=== PATIENT | male | born 1995 | race Caucasian/White ===

== ENCOUNTER 2017-01-19 00:42 | Inpatient (IN) | payer BC, OTHER ==
[~2017-01-19] VITALS: Ht 188 cm; Wt 95.0 kg
[2017-01-19 01:35] LABS: URINE APPEARANCE CLEAR (CLEAR); URINE BILIRUBIN NEG (NEG); URINE COLOR YELLOW; URINE NITRITE NEG (NEG); URINE SPECIFIC GRAVITY 1.014 (1.000-1.030); UROBILINOGEN NEG (NEG); ZZUR CULT IF INDIC CLEAN CATCH YES
--- NOTE | 2017-01-19 01:40 | EMERGENCY ROOM VISIT NOTE ---
History Report prepared by Yuri: Ike Sargent Under the Supervision of: Dr. Per Radford M.D. First contact with patient: 01:10 Chief Complaint: MENTAL HEALTH EVALUATION Stated Complaint: MHMR History of Present Illness The patient is a 21 year old male who presents to the Emergency Room for a mental health. The patient was drinking alcohol this evening with his friends. He then tried to get in contact with his girlfriend because they were fighting and she would not talk to him. He sent text messages to his girlfriend's friend that were concerning for suicidal ideation. The police were called, and they brought him here. The patient states the only text that he can think of that could suggest this is "I'm done." He does have a history of an intentional drug overdose 1 month ago. He denies any thoughts of hurting himself or others at this time. He has a history of anxiety and depression and was treated with [place] in the past. He was taken off of it due to his psychiatrist's inability to treat him anymore. He denies any other drug use. He denies any homicidal ideation. Source of History: patient Onset: Tonight Position: other (Global) Symptom Intensity: moderate Quality: other (Mental Health Evaluation) Timing: constant Note: Denies any thoughts of suicide or homicide. Review of Systems See HPI for pertinent positives & negatives. A total of 10 systems reviewed and were otherwise negative. Past Medical & Surgical Medical Problems: (1) Anxiety (2) Depression Family History Patient reports no known family medical history. Social History Smoking Status: Never Smoker Smokeless Tobacco Use: No Alcohol Use: occasionally Drug Use: none Marital Status: single Occupation Status: [employer] student Current/Historical Medications No Active Prescriptions or Reported Meds Allergies Coded Allergies: No Known Allergies (Unverified , 01/19/17) Physical Exam Vital Signs Date Time Temp Pulse Resp B/P (MAP) Pulse Ox O2 Delivery O2 Flow Rate FiO2 01/19/17 03:04 85 18 142/69 95 Room Air 01/19/17 00:47 36.7 118 19 142/85 95 Room Air Physical Exam GENERAL: Patient is minimally intoxicated. Smells of alcohol. Hesitant in answering questions. HEENT: No acute trauma, normocephalic atraumatic, mucous membranes moist, no nasal congestion, no scleral icterus. NECK: No stridor, no adenopathy, no meningismus, trachea is midline. LUNGS: No dyspnea. Clear to auscultation and equal bilaterally. No wheeze, no rhonchi. HEART: Regular rate and rhythm. No murmurs, rubs, gallops appreciated. ABDOMEN: Soft, nontender, bowel sounds positive, no masses appreciated, no peritonitis. BACK: No midline tenderness, no CVA tenderness EXTREMITIES: Normal motion all extremities, no cyanosis, no edema. NEUROLOGIC: Alert and oriented, no acute motor or sensory deficits, no focal weakness, cranial nerves grossly intact. SKIN: No rash, no jaundice, no diaphoresis. PSYCH: Denies suicidal ideation, depression, and homicidal ideation. Denies saying the things that are documented in the 302 petition. Medical Decision & Procedures Laboratory Results 01/19/17 01:27 Red Blood Count 4.75, Mean Corpuscular Volume 88.0, Mean Corpuscular Hemoglobin 32.2, Mean Corpuscular Hemoglobin Concent 36.6, Mean Platelet Volume 9.4, Neutrophils (%) (Auto) 61.3, Lymphocytes (%) (Auto) 31.3, Monocytes (%) (Auto) 5.7, Eosinophils (%) (Auto) 1.1, Basophils (%) (Auto) 0.4, Neutrophils # (Auto) 2.78, Lymphocytes # (Auto) 1.42, Monocytes # (Auto) 0.26, Eosinophils # (Auto) 0.05, Basophils # (Auto) 0.02 01/19/17 01:27 Test 01/19/17 00:58 01/19/17 01:27 Urine Color YELLOW Urine Appearance CLEAR (CLEAR) Urine pH 5.0 (4.5-7.5) Urine Specific [place] 1.014 (1.000-1.030) Urine Protein NEG (NEG) Urine Glucose (UA) NEG (NEG) Urine Ketones NEG (NEG) Urine Occult Blood NEG (NEG) Urine Nitrite NEG (NEG) Urine Bilirubin NEG (NEG) Urine Urobilinogen NEG (NEG) Urine Leukocyte Esterase SMALL (NEG) Urine WBC (Auto) /hpf (0-5) Urine RBC (Auto) /hpf (0-4) Urine Hyaline Casts (Auto) /lpf (0-5) Urine Epithelial Cells (Auto) /lpf (0-5) Urine Bacteria (Auto) (NEG) Urine RBC 0-4 /hpf (0-4) Urine WBC 10-30 /hpf (0-5) Urine Epithelial Cells 0-5 /lpf (0-5) Urine Bacteria NEG (NEG) Urine Opiates Screen NEG (NEG) Urine Methadone, Qualitative NEG (NEG) Urine Barbiturates NEG (NEG) Urine Phencyclidine (PCP) Level NEG (NEG) Ur Amphetamine/Methamphetamine NEG (NEG) MDMA (Ecstasy) Screen NEG (NEG) Urine Benzodiazepines Screen NEG (NEG) Urine Cocaine Metabolite NEG (NEG) Urine Marijuana (THC) NEG (NEG) White Blood Count 4.54 K/uL (4.8-10.8) Red Blood Count 4.75 M/uL (4.7-6.1) Hemoglobin 15.3 g/dL (14.0-18.0) Hematocrit 41.8 % (42-52) Mean Corpuscular Volume 88.0 fL (80-100) Mean Corpuscular Hemoglobin 32.2 pg (25-34) Mean Corpuscular Hemoglobin Concent 36.6 g/dl (32-36) Platelet Count 206 K/uL (130-400) Mean Platelet Volume 9.4 fL (7.4-10.4) Neutrophils (%) (Auto) 61.3 % Lymphocytes (%) (Auto) 31.3 % Monocytes (%) (Auto) 5.7 % Eosinophils (%) (Auto) 1.1 % Basophils (%) (Auto) 0.4 % Neutrophils # (Auto) 2.78 K/uL (1.4-6.5) Lymphocytes # (Auto) 1.42 K/uL (1.2-3.4) Monocytes # (Auto) 0.26 K/uL (0.11-0.59) Eosinophils # (Auto) 0.05 K/uL (0-0.5) Basophils # (Auto) 0.02 K/uL (0-0.2) RDW Standard Deviation 40.0 fL (36.4-46.3) RDW Coefficient of Variation 12.5 % (11.5-14.5) Immature Granulocyte % (Auto) 0.2 % Immature Granulocyte # (Auto) 0.01 K/uL (0.00-0.02) Anion Gap 10.0 mmol/L (3-11) Est Creatinine Clear Calc Drug Dose 128.1 ml/min Estimated GFR () 111.4 Estimated GFR (Non- 96.1 BUN/Creatinine Ratio 17.9 (10-20) Calcium Level 8.4 mg/dl (8.5-10.1) Total Bilirubin 0.5 mg/dl (0.2-1) Aspartate Amino Transf (AST/SGOT) 17 U/L (15-37) Alanine Aminotransferase (ALT/SGPT) 25 U/L (12-78) Alkaline Phosphatase 89 U/L (45-117) Total Protein 7.1 gm/dl (6.4-8.2) Albumin 4.2 gm/dl (3.4-5.0) Globulin 2.9 gm/dl (2.5-4.0) Albumin/Globulin Ratio 1.4 (0.9-2) Thyroid Stimulating Hormone (TSH) 1.850 uIu/ml (0.300-4.500) Salicylates Level < 1.7 mg/dl (2.8-20) Acetaminophen Level < 2 ug/ml (10-30) [place] Level < 0.2 mMOL/L (0.6-1.2) Ethyl Alcohol mg/dL 87.0 mg/dl (0-3) Laboratory results as reviewed by me. ED Course 0110: The patient was evaluated in room A6. A complete history and physical exam was performed. 0326: The patient willingly signed the 203 form and will be transferred to [address] [place] [address] for further management. Medical Decision Differential: Mood Disorder, Overdose, Infectious, Electrolyte Abnormality, Cardiac, Hepatic, Endocrine, Toxicologic, Neurologic, amongst other pathologies entertained. 21 yr old male arrives via police after making suicidal statements to friends. This was confirmed by friend and through 302 petition. Medically clear. He is somewhat evasive about this but with his recent suicide attempt, clear statements in 302, I feel that admission to psych necessary. [address] [place] [address] down to discuss with patient and he is voluntarily accepting admission here. Medication Reconcilliation Current Medication List: was personally reviewed by me Blood Pressure Screening Patient's blood pressure: Elevated blood pressure Blood pressure disposition: Elevated BP felt to be situational Impression Primary Impression: Suicidal ideation Additional Impression: Depression Scribe Attestation The scribe's documentation has been prepared under my direction and personally reviewed by me in its entirety. I confirm that the note above accurately reflects all work, treatment, procedures, and medical decision making performed by me. Departure Information Dispostion Mental Health Acute Care Prescriptions No Active Prescriptions or Reported Meds Referrals No Doctor, Assigned (PCP) Patient Instructions My [facility] Problem Qualifiers
[2017-01-19 01:44] LABS: BASO % 0.4 %; BASO ABS # 0.02 K/uL (0-0.2); COMPLETE YES; EOS % 1.1 %; HEMATOCRIT 41.8 % (42-52); IG% 0.2 %; LYMPH % 31.3 %; LYMPH ABS # 1.42 K/uL (1.2-3.4); MEAN CORPUSCULAR HEMOGLOBIN 32.2 pg (25-34); MEAN CORPUSCULAR HGB CONC 36.6 g/dl (32-36); MEAN PLATELET VOLUME 9.4 fL (7.4-10.4); MONO % 5.7 %; NEUT % 61.3 %; PLATELET COUNT 206 K/uL (130-400); RED BLOOD COUNT 4.75 M/uL (4.7-6.1); WHITE BLOOD COUNT 4.54 K/uL (4.8-10.8)
[2017-01-19 01:53] LABS: BENZODIAZEPINE, URINE NEG (NEG); COCAINE,URINE NEG (NEG); MANUAL MICROSCOPIC REQUIRED? YES; PHENCYCLIDINE, URINE NEG (NEG); REVIEW REQ? NO
[2017-01-19 01:55] LABS: URINE BACTERIA NEG (NEG); URINE RBC 0-4 /hpf (0-4)
[2017-01-19 02:01] LABS: BUN/CREATININE RATIO 17.9 (10-20); CALCIUM 8.4 mg/dl (8.5-10.1); CREATININE 1.1 mg/dl (0.60-1.40); POTASSIUM 3.7 mmol/L (3.5-5.1)
[2017-01-19 02:12] LABS: ALB/GLOB RATIO 1.4 (0.9-2); THYROID STIMULATING HORMONE 1.85 uIu/ml (0.300-4.500)
[2017-01-19 02:17] LABS: ACETAMINOPHEN < 2 ug/ml (10-30); LITHIUM < 0.2 mMOL/L (0.6-1.2)
[2017-01-19 03:04] VITALS: O2SAT 95
[2017-01-19] MEDS ORDERED: NURSING VERBAL MED ORDER ONE (03:15)
[2017-01-19 03:30] VITALS: BP 142/69; PULSE 85; TEMP 36.7; BMI 26.4; BMI 26.9
[2017-01-19 03:39] VITALS: BP 142/69; PULSE 85; TEMP 36.7; Ht 188 cm; Wt 95.0 kg
[2017-01-19] MEDS ORDERED: hydrOXYzine HCL 25 MG TAB PO PRN (04:15)
[2017-01-19] MEDS ORDERED: MAGNESIUM HYDROXIDE SUSP 30 ML UDC PO PRN (04:15)
[2017-01-19] MEDS ORDERED: BISMUTH SUBSALICYLATE PER ML OMNICELL CHARGE PO PRN (04:15)
[2017-01-19] MEDS ORDERED: SODIUM CHLORIDE 0.65% NA SOLN 45 ML (OCEAN) PRN (04:15)
[2017-01-19] MEDS ORDERED: ALUMINUM/MAGNESIUM SUSP 30 ML UDC PO PRN (04:15)
[2017-01-19] MEDS ORDERED: ACETAMINOPHEN 325 MG TAB PO PRN (04:15)
[2017-01-19 06:52] VITALS: BP_SYST 109; BP_SYST 118; BP_DIAS 64; BP_DIAS 71; PULSE 80; PULSE 85; TEMP 36.8
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
[2017-01-19 14:02] VITALS: BP 105/67; PULSE 54
[2017-01-19] MEDS: hydrOXYzine HCL 25 MG TAB PO PRN ×2 (21:21→22:36)
[2017-01-19 21:46] VITALS: BP 122/80; PULSE 48
[2017-01-20 06:38] VITALS: BP_SYST 115; BP_SYST 122; BP_DIAS 67; BP_DIAS 71; PULSE 66; PULSE 79; TEMP 36.5
--- NOTE | 2017-01-20 10:09 | Psychiatric Progress Notes ---
Progress Note Date of Service Jan 20, 2017. 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 Today he contends that this was all misconstrued. He was not suicidal in any way. He does not want to take medications although says he would like to see a therapist while here at [facility]. He is agreeable to allowing us to gain some supplemental information from the friends he was with an from the girlfriend's friend who received a text that were worrisome. He is being cooperative with treatment but because the fall started yesterday, he would like to be discharged as soon as possible not wanting to miss any more school then necessary. At this point, the patient requires inpatient treatment until we are able to collaborate the patient's story and mediate any existing risk factors. Chief Complaint "I'm fine. ". Subjective Patient was seen & assessed interval progress reviewed with Treatment Team. The patient says that he had a hard time falling asleep last night and so took a prn vistaril. He has talked with his girlfriend by phone, and she has told him that she wants him to be well. A meeting is scheduled with her at noon today. We explore reasons that his previous provider might have prescribed mood stabilizers. He denies any discrete episodes of euphoric mood, sleeplessness or pleasure seeking behaviors. He again says that he has emotional spikes that are usually reactive to something having to do with his mother or his girlfriend. He often looks back at the episode and asks himself "Why can't I just let things go?" realizing that he may have over-reacted. He again says that he has not been depressed for more than a day or two over the last several weeks. He denies any persistent pattern of depressed mood or anxiety. He continues to deny SI. He has submitted his 72 hr notice to withdraw from treatment and is hoping to be able to attend classes on Wednesday AM. Parents are also here and will come in for a meeting on . Review of Systems Constitutional: No fever, No chills, No sweats, No weight loss, No weakness, No fatigue, No problem reported ENT: No hearing loss, No unusual epistaxis, No nasal symptoms, No sore throat, No tinnitus, No dental problems, No trouble swallowing, No problem reported Respiratory: No cough, No sputum, No wheezing, No shortness of breath, No dyspnea on exertion, No dyspnea at rest, No hemoptysis, No problem reported Cardiovascular: No chest pain, No orthopnea, No PND, No edema, No claudication , No palpitations, No problem reported Abdomen: No pain, No nausea, No vomiting, No diarrhea, No constipation, No GI bleeding, No problem reported Musculoskeletal: No joint pain, No muscle pain, No swelling, No calf pain, No problem reported Neurologic: No memory loss, No paralysis, No weakness, No numbness/tingling, No vertigo, No balance problems, No problem reported Psychiatric: No depression symptoms, No anhedonism, No anxiety, No insomnia, No substance abuse, No problem reported Integumentary: No rash, No itch, No new/changing skin lesions, No color change , No bleeding, No problem reported Sleep Information Total Hours of Sleep: 6.25 Meal Information Percent of Breakfast Consumed: 0 Percent of Lunch Consumed: 0 Percent of Dinner Consumed: 75 Mental Status Exam During interview pt is: alert and oriented, cooperative Appearance: appropriately groomed Eye contact is: good Motor behavior is: steady gait & station, no abnormal motor movements Speech: normal in rate, rhythm & volume Affect: blunted Mood is: other ("hopeful") Thought process: goal directed Thought content: reality based without delusions Suicidal thought are: denied Homicidal thoughts are: denied Hallucinations: denies auditory, denies visual Cognition: memory grossly intact, attention grossly intact, language grossly intact Intelligence estimated to be: average Insight: fair Judgement: fair Impression The patient is adjusting to the unit, and has submitted a 72 hr notice to withdraw from treatment that will on 01/22 at 1000. We are continuing to gather supplemental information, and will have a meeting with his girlfriend today at noon. Staff has been told that she would like to end the relationship based on the fact that he is extremely controlling. Parents will come for a meeting tomorrow. I cannot elicit a history of depressed mood recently, nor anxiety that would respond to ADM's, and I cannot find evidence of bipolarity in his history. WE will ask him to sign an RD for his old psychiatrist to better understand why he prescribed mood stabilizers. At this time, we will order no meds. Plan (1) unspecified depression 01/19 - Obtain collateral information from the friends he was drinking with, and or the girl to whom he texted last night -Every 15 minute checks for safety -Encourage participation in group and individual counseling -The patient is agreeable to outpatient therapy -He is declining medications at this time 01/20 - Meeting with GF today at noon, and parents tomorrow at 2200 (2) History of seizures 01/19 -No seizures since February 2016 and is not on antiseizure medicines Has been reviewed with Dr. Chitra Tom Discharge / Aftercare Planning Primary Care Physician: Name: [facility] Therapist: Name: Chandu Savage Visit Code E&M Code: 08517 Inventory Assets Strengths: Doing well academically in school, good relationship with family Needs: To abstain from alcohol Risk Factors Assessment Male: Yes : Yes /single/: Yes Higher / Fall in social status: No Health problems: No Mental Health Diagnoses: Yes Substance use disorders: Yes Previous attempt: Yes Previous psychiatric stay: Yes Hopelessness: No Smoker: No Protective Factors Assessment Confucianism beliefs: Yes : No Responsible for young children: No Employed: No Stable relationships: Yes Supportive family: Yes Data Vital Signs Last 24 Hrs: Date Time Temp Pulse Resp B/P (MAP) Pulse Ox O2 Delivery O2 Flow Rate FiO2 01/20/17 06:38 36.5 66 16 115/67 79 122/71 01/19/17 21:46 48 18 122/80 01/19/17 14:02 54 14 105/67 Meds Administered Last 24 Hrs: Meds Administered (Past 24Hrs) Medications (Trade) Dose Ordered Sig/Cara Route Start Time Stop Time Status Last Admin Dose Admin Hydroxyzine HCl (Vistaril Tab) 50 mg HSZ PRN PO 01/19/17 04:15 02/18/17 04:14 01/19/17 22:36 50 MG Lab Results Last 24 Hrs: 01/19/17 01:27 Red Blood Count 4.75, Mean Corpuscular Volume 88.0, Mean Corpuscular Hemoglobin 32.2, Mean Corpuscular Hemoglobin Concent 36.6, Mean Platelet Volume 9.4, Neutrophils (%) (Auto) 61.3, Lymphocytes (%) (Auto) 31.3, Monocytes (%) (Auto) 5.7, Eosinophils (%) (Auto) 1.1, Basophils (%) (Auto) 0.4, Neutrophils # (Auto) 2.78, Lymphocytes # (Auto) 1.42, Monocytes # (Auto) 0.26, Eosinophils # (Auto) 0.05, Basophils # (Auto) 0.02 01/19/17 01:27 Test 01/19/17 00:58 01/19/17 01:27 Urine Color YELLOW Urine Appearance CLEAR (CLEAR) Urine pH 5.0 (4.5-7.5) Urine Specific Carson 1.014 (1.000-1.030) Urine Protein NEG (NEG) Urine Glucose (UA) NEG (NEG) Urine Ketones NEG (NEG) Urine Occult Blood NEG (NEG) Urine Nitrite NEG (NEG) Urine Bilirubin NEG (NEG) Urine Urobilinogen NEG (NEG) Urine Leukocyte Esterase SMALL (NEG) Urine WBC (Auto) /hpf (0-5) Urine RBC (Auto) /hpf (0-4) Urine Hyaline Casts (Auto) /lpf (0-5) Urine Epithelial Cells (Auto) /lpf (0-5) Urine Bacteria (Auto) (NEG) Urine RBC 0-4 /hpf (0-4) Urine WBC 10-30 /hpf (0-5) Urine Epithelial Cells 0-5 /lpf (0-5) Urine Bacteria NEG (NEG) Urine Opiates Screen NEG (NEG) Urine Methadone, Qualitative NEG (NEG) Urine Barbiturates NEG (NEG) Urine Phencyclidine (PCP) Level NEG (NEG) Ur Amphetamine/Methamphetamine NEG (NEG) MDMA (Ecstasy) Screen NEG (NEG) Urine Benzodiazepines Screen NEG (NEG) Urine Cocaine Metabolite NEG (NEG) Urine Marijuana (THC) NEG (NEG) White Blood Count 4.54 K/uL (4.8-10.8) Red Blood Count 4.75 M/uL (4.7-6.1) Hemoglobin 15.3 g/dL (14.0-18.0) Hematocrit 41.8 % (42-52) Mean Corpuscular Volume 88.0 fL (80-100) Mean Corpuscular Hemoglobin 32.2 pg (25-34) Mean Corpuscular Hemoglobin Concent 36.6 g/dl (32-36) Platelet Count 206 K/uL (130-400) Mean Platelet Volume 9.4 fL (7.4-10.4) Neutrophils (%) (Auto) 61.3 % Lymphocytes (%) (Auto) 31.3 % Monocytes (%) (Auto) 5.7 % Eosinophils (%) (Auto) 1.1 % Basophils (%) (Auto) 0.4 % Neutrophils # (Auto) 2.78 K/uL (1.4-6.5) Lymphocytes # (Auto) 1.42 K/uL (1.2-3.4) Monocytes # (Auto) 0.26 K/uL (0.11-0.59) Eosinophils # (Auto) 0.05 K/uL (0-0.5) Basophils # (Auto) 0.02 K/uL (0-0.2) RDW Standard Deviation 40.0 fL (36.4-46.3) RDW Coefficient of Variation 12.5 % (11.5-14.5) Immature Granulocyte % (Auto) 0.2 % Immature Granulocyte # (Auto) 0.01 K/uL (0.00-0.02) Anion Gap 10.0 mmol/L (3-11) Est Creatinine Clear Calc Drug Dose 128.1 ml/min Estimated GFR () 111.4 Estimated GFR (Non- 96.1 BUN/Creatinine Ratio 17.9 (10-20) Calcium Level 8.4 mg/dl (8.5-10.1) Total Bilirubin 0.5 mg/dl (0.2-1) Aspartate Amino Transf (AST/SGOT) 17 U/L (15-37) Alanine Aminotransferase (ALT/SGPT) 25 U/L (12-78) Alkaline Phosphatase 89 U/L (45-117) Total Protein 7.1 gm/dl (6.4-8.2) Albumin 4.2 gm/dl (3.4-5.0) Globulin 2.9 gm/dl (2.5-4.0) Albumin/Globulin Ratio 1.4 (0.9-2) Thyroid Stimulating Hormone (TSH) 1.850 uIu/ml (0.300-4.500) Salicylates Level < 1.7 mg/dl (2.8-20) Acetaminophen Level < 2 ug/ml (10-30) Darby Level < 0.2 mMOL/L (0.6-1.2) Ethyl Alcohol mg/dL 87.0 mg/dl (0-3) Date/Time Source Procedure Growth Status 01/19/17 00:58 Urine , Clean Catch Urine Culture Pending Received
[2017-01-20 14:34] VITALS: BP 106/72; PULSE 65
[2017-01-20] MEDS: hydrOXYzine HCL 25 MG TAB PO PRN ×2 (21:26→22:11)
[2017-01-20 21:31] VITALS: BP 117/75; PULSE 53
[2017-01-20 22:02] VITALS: BP 117/75; PULSE 53
[2017-01-21 06:45] VITALS: BP_SYST 121; BP_DIAS 68; BP_DIAS 71; PULSE 55; PULSE 63; TEMP 36.4
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
--- NOTE | 2017-01-21 13:01 | Psychiatric Progress Notes ---
Psychiatric Progress Note Date of Service Jan 21, 2017. Notes Family meeting with parents went very poorly, they expressed significant concerns about the patient and did not support discharge. They encouraged him to rescind his 72 hour notice and stay in treatment, and to be honest about how he's been feeling. He was not clear if he would agree to this, and said they couldn't make him do that. Discharge canceled in light of parents' concerns and patient's ongoing manipulative behaviors and concerns for risk of suicide given recent suicidal statements, history of suicide attempt, multiple stressors, and lack of honesty in treatment. Suspect axis II component, and unclear if medications are indicated.
[2017-01-21 14:01] VITALS: BP 98/63; PULSE 67
[2017-01-21] MEDS: hydrOXYzine HCL 25 MG TAB PO PRN ×2 (21:05→21:58)
[2017-01-21 22:02] VITALS: BP 114/61; PULSE 56
[2017-01-22 06:56] VITALS: BP_SYST 102; BP_SYST 109; BP_DIAS 67; BP_DIAS 71; PULSE 58; TEMP 36.5
== END 2017-01-22 09:48 | disposition home or self-care (01) | DRG 881 ==
LOC: C.EDB 00:44 → C.MHU 03:08
PROVIDERS: ADMIT Psychiatry & Neurology Psychiatry; ATTEND Psychiatry & Neurology Psychiatry
DX: F32.9 Major depressive disorder, single episode, unspecified (principal); Z91.5 Personal history of self-harm; Z86.69 Personal history of other diseases of the nervous system and sense organs; Z81.8 Family history of other mental and behavioral disorders; Z81.1 Family history of alcohol abuse and dependence; Z81.4 Family history of other substance abuse and dependence